=== PATIENT | female | born 1940 | race Caucasian/White ===

== ENCOUNTER 2017-01-26 06:44 | Day surgery (SDC) | payer MEDICARE, OTHER ==
[~2017-01-26 06:44] MED LIST: ACETAMINOPHEN 1000MG/100 ML PREMIX IV ONE; CEFAZOLIN 2 Gram 50 ML IVPB ONE
[2017-01-26] MEDS ORDERED: MIDAZOLAM HCL 2MG/2ML VIAL IV ONE (14:00)
[2017-01-26] MEDS ORDERED: PROPOFOL 10 MG/ML VIAL IV ONE (14:00)
[2017-01-26] MEDS ORDERED: *PACU ONLY* KETAMINE HCL 10 MG/ML (20ML) VIAL IV ONE (14:00)
--- NOTE | 2017-01-27 12:36 | Operative Note ---
DATE OF SURGERY: 01/26/2017 PREOPERATIVE DIAGNOSIS: Vulvar lesions. POSTOPERATIVE DIAGNOSIS: Vulvar lesions. OPERATION: Pap smear under anesthesia. PUNCH BIOPSIES of the right and left labia. Physician: Chio Shetty DO Anesthesia: MAC with local. COMPLICATIONS: None. Estimated Blood Loss: Minimal. HISTORY OF PRESENT ILLNESS: This is a 76-year-old white female. She has had vulvar abnormalities for a number of years. A couple of years ago we did do a biopsy and it came back lichen sclerosis. The area has not healed and has appeared worse over time. Because of that, I wanted to do some biopsies. She could not tolerate it in the office so we opted to do it under local anesthesia. She has not had a Pap smear as well for a long time either, so we have to do a Pap smear. PROCEDURE: The patient is prepped for surgery and brought back to the Operative Suite. She was made groggy. She was sterilely prepped and draped in dorsal lithotomy position. Speculum was placed. A Pap smear was done without difficulty. Area that was very thick whitish plaque and ulcerated on the left side was anesthetized. A 6 mm punch biopsy was used to sample that area. The area on the right side appeared to have similar aspects. That area was numbed up and a punch biopsy was done with a 6 mm punch. The area was oozing. Silver nitrate was placed. A stitch using a [id number] 2-0 Vicryl was then used. The area was cleaned and dried. The patient was then brought to the recovery room in satisfactory condition. Chio Shetty DO [facility]
== END 2017-01-26 09:10 | disposition home or self-care (01) ==
LOC: SUR 06:44
PROVIDERS: ATTEND Obstetrics & Gynecology
DX: L90.0 Lichen sclerosus et atrophicus (principal); N90.4 Leukoplakia of vulva; J44.9 Chronic obstructive pulmonary disease, unspecified; I10 Essential (primary) hypertension; E03.9 Hypothyroidism, unspecified; E78.00 Pure hypercholesterolemia, unspecified
CPT/HCPCS: 56605; 56606; 00940; 88305; 93005; 93010; J0690

== ENCOUNTER 2017-08-08 07:10 | Emergency (ER) | payer MEDICARE, OTHER ==
--- NOTE | 2017-08-08 07:34 | Emergency Department Record ---
History of Present Illness - General Chief complaint: Extremity Problem Stated complaint: gout left foot Time Seen by Provider: 08/08/17 07:14 Source: Patient, RN notes reviewed - History of Present Illness Initial comments: pain in the first MP joint of the foot. swollen and no heat and she has had gout before. Onset/Timin -: Days(s) - Related Data Home Medications Medication Instructions Recorded Confirmed Last Taken Atorvastatin Calcium 40 mg PO DAILY 08/08/17 08/08/17 1 Day Ago ~08/07/17 Cholecalciferol (Vitamin D3) 2,000 unit PO DAILY 08/08/17 08/08/17 1 Day Ago [Vitamin D3] ~08/07/17 Ferrous Sulfate 325 mg PO DAILY 08/08/17 08/08/17 1 Day Ago ~08/07/17 Hydrocodone/Acetaminophen [[place] 1 tab PO Q6H PRN 08/08/17 08/08/17 1 Day Ago 5mg/325mg] ~08/07/17 Levothyroxine Sodium [Synthroid] 175 mcg PO DAILY 08/08/17 08/08/17 1 Day Ago ~08/07/17 Previous Rx's Medication Instructions Recorded Miconazole Nitrate [Monistat 7] 44 gm VG BID PRN #1 cmb.pf.crm 06/07/16 Allergies Allergy/AdvReac Type Severity Reaction Status Date / Time No Known Drug Allergies Allergy Verified 08/08/17 07:17 Travel Screening - Travel/Exposure Within Last 30 Days Have you traveled within the last 30 days?: No - Travel/Exposure Within Last Year Have you traveled outside the [place] in the last year?: No - Additonal Travel Details Have you been exposed to anyone with a communicable illness?: No - Travel Symptoms Symptom Screening: None Review of Systems Reviewed: No additional complaints except as noted below Constitutional: Reports: As per HPI. Denies: Chills, Fever, Malaise, Night sweats, Weakness, Weight change Eyes: Reports: As per HPI. Denies: Eye discharge, Eye pain, Photophobia, Vision change ENT: Reports: As per HPI. Denies: Congestion, Dental pain, Ear pain, Epistaxis , Hearing loss, Throat pain Respiratory: Reports: As per HPI. Denies: Cough, Dyspnea, Hemoptysis, Stridor, Wheezes Cardiovascular: Reports: As per HPI. Denies: Arrhythmia, Chest pain, Dyspnea on exertion, Edema, Murmurs, Orthopnea, Palpitations, Paroxysmal nocturnal dyspnea, Rheumatic Fever, Syncope Endocrine: Reports: As per HPI. Denies: Fatigue, Heat or cold intolerance, Polydipsia, Polyuria Gastrointestinal: Reports: As per HPI. Denies: Abdominal pain, Constipation, Diarrhea, Hematemesis, Hematochezia, Melena, Nausea, Vomiting Genitourinary: Reports: As per HPI. Denies: Abnormal menses, Discharge, Dyspareunia, Dysuria, Frequency, Hematuria, Incontinence, Retention, Urgency Musculoskeletal: Reports: As per HPI, Gout. Denies: Arthralgia, Back pain, Joint swelling, Myalgia, Neck pain Skin: Reports: As per HPI. Denies: Bruising, Change in color, Change in hair/ nails, Lesions, Pruritus, Rash Neurological: Reports: As per HPI. Denies: Abnormal gait, Confusion, Headache, Numbness, Paresthesias, Seizure, Tingling, Tremors, Vertigo, Weakness Psychiatric: Reports: As per HPI. Denies: Anxiety, Auditory hallucinations, Depression, Homicidal thoughts, Suicidal thoughts, Visual hallucinations Hematological/Lymphatic: Reports: As per HPI. 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)" - NEURO Hx Neuro Disorders: No - GI Hx GI Disorders: Yes Hx GI Bleed: Yes Hx Reflux: Yes Hx of Polyps: Yes - Hx Genitourinary Disorders: Yes Hx Kidney Stones: Yes Hx UTI: Yes - ENDOCRINE Hx Endocrine Disorders: Yes Hx Thyroid Disease: Yes (hypo) - MUSCULOSKELETAL Hx Musculoskeletal Disorders: Yes Hx Arthritis: Yes Hx Osteoporosis: Yes Comment:: spinal stenosis - PSYCH Hx Psych Problems: No - HEMATOLOGY/ONCOLOGY Hx Hematology/Oncology Disorders: Yes Hx Anemia: Yes Hx Blood Transfusions: Yes Hx Blood Transfusion Reaction: No Family Medical History Any Significant Family History?: Yes Hx Stroke: Father Physical Exam - General General Appearance: Alert, Oriented x3, Cooperative, No acute distress - Head Head exam: Normal inspection - Eye Eye exam: Normal appearance, PERRL Pupils: Normal accommodation - ENT ENT exam: Normal exam, Mucous membranes moist, Normal external ear exam, Normal orophraynx, TM's normal bilaterally Ear exam: Normal external inspection. negative: External canal tenderness Nasal Exam: Normal inspection. negative: Discharge, Sinus tenderness Mouth exam: Normal external inspection, Tongue normal Teeth exam: Normal inspection. negative: Dental caries Throat exam: Normal inspection. negative: Tonsillar erythema, Tonsillar exudate - Neck Neck exam: Normal inspection, Full ROM. negative: Tenderness - Respiratory Respiratory exam: Normal lung sounds bilaterally. negative: Respiratory distress - Cardiovascular Cardiovascular Exam: Regular rate, Normal rhythm, Normal heart sounds - GI/Abdominal GI/Abdominal exam: Soft, Normal bowel sounds - Rectal Rectal exam: Deferred - exam: Deferred - Extremities Extremities exam: Normal inspection, Full ROM, Normal capillary refill, Tenderness (first MP joint) - Back Back exam: Reports: Normal inspection, Full ROM. Denies: Muscle spasm, Rash noted, Tenderness - Neurological Neurological exam: Alert, Normal gait, Oriented X3, Reflexes normal - Psychiatric Psychiatric exam: Normal affect, Normal mood - Skin Skin exam: Dry, Intact, Normal color, Warm Course Vital Signs 08/08/17 07:12 Temperature 97.6 F Pulse Rate 62 Respiratory 18 Rate Blood Pressure 160/67 Pulse Ox 99 Medical Decision Making - Lab Data Result diagrams: 08/08/17 08:02 Disposition Clinical Impression: Acute gout Qualifiers: Gout site: foot Encounter type: initial encounter Laterality: left Disposition: Home, Self-Care Forms: Patient Portal Access Quality - Quality Measures Quality Measures: N/A - Blood Pressure Screening Does Patient Have Any of the Following: No Blood Pressure Classification: Hypertensive Reading Systolic Measurement: 160 Diastolic Measurement: 67 Screening for High Blood Pressure: Patient Exclusion, Hx of HTN [G9744]
[2017-08-08] MEDS: INDOMETHACIN 25 MG CAPSULE PO ONE (07:41)
[2017-08-08 08:15] LABS: BASO % 0.1 % (0-6); EOS % 0.6 % (0-6); GRAN % 78.8 % (47-80); HEMATOCRIT 43.7 % (35.0-47.0); HEMOGLOBIN 14.2 gm/dl (11.6-16.0); LYMPH % 10.9 % (16-45); MEAN CELL VOLUME 92.4 fl (81-97); MEAN CORPUSCULAR HGB CONC 32.5 g/dl (32-36); MEAN PLATELET VOLUME 9.3 fl (7.4-10.4); MONO % 9.6 % (0-9); PLATELET COUNT 284 K/uL (130-400); RED BLOOD COUNT 4.73 M/uL (3.80-5.40); RED CELL DISTRIBUTION WIDTH 13.3 % (11.5-14.5); WHITE BLOOD COUNT W/O DIFF 9.1 K/uL (4.2-12.2)
--- NOTE | 2017-08-08 08:36 | Emergency Department Record ---
History of Present Illness - General Chief complaint: Extremity Problem Stated complaint: gout left foot Time Seen by Provider: 08/08/17 07:14 Source: Patient, RN notes reviewed - History of Present Illness Onset/Timin -: Days(s) - Related Data Home Medications Medication Instructions Recorded Confirmed Last Taken Atorvastatin Calcium 40 mg PO DAILY 08/08/17 08/08/17 1 Day Ago ~08/07/17 Cholecalciferol (Vitamin D3) 2,000 unit PO DAILY 08/08/17 08/08/17 1 Day Ago [Vitamin D3] ~08/07/17 Ferrous Sulfate 325 mg PO DAILY 08/08/17 08/08/17 1 Day Ago ~08/07/17 Hydrocodone/Acetaminophen [[place] 1 tab PO Q6H PRN 08/08/17 08/08/17 1 Day Ago 5mg/325mg] ~08/07/17 Levothyroxine Sodium [Synthroid] 175 mcg PO DAILY 08/08/17 08/08/17 1 Day Ago ~08/07/17 Previous Rx's Medication Instructions Recorded Miconazole Nitrate [Monistat 7] 44 gm VG BID PRN #1 cmb.pf.crm 06/07/16 Indomethacin [Indocin] 25 mg PO TID #20 capsule 08/08/17 Allergies Allergy/AdvReac Type Severity Reaction Status Date / Time No Known Drug Allergies Allergy Verified 08/08/17 07:17 Travel Screening - Travel/Exposure Within Last 30 Days Have you traveled within the last 30 days?: No - Travel/Exposure Within Last Year Have you traveled outside the [place] in the last year?: No - Additonal Travel Details Have you been exposed to anyone with a communicable illness?: No - Travel Symptoms Symptom Screening: None Review of Systems Constitutional: Reports: As per HPI. Denies: Chills, Fever, Malaise, Night sweats, Weakness, Weight change Eyes: Reports: As per HPI. Denies: Eye discharge, Eye pain, Photophobia, Vision change ENT: Reports: As per HPI. Denies: Congestion, Dental pain, Ear pain, Epistaxis , Hearing loss, Throat pain Respiratory: Reports: As per HPI. Denies: Cough, Dyspnea, Hemoptysis, Stridor, Wheezes Cardiovascular: Reports: As per HPI. Denies: Arrhythmia, Chest pain, Dyspnea on exertion, Edema, Murmurs, Orthopnea, Palpitations, Paroxysmal nocturnal dyspnea, Rheumatic Fever, Syncope Endocrine: Reports: As per HPI. Denies: Fatigue, Heat or cold intolerance, Polydipsia, Polyuria Gastrointestinal: Reports: As per HPI. Denies: Abdominal pain, Constipation, Diarrhea, Hematemesis, Hematochezia, Melena, Nausea, Vomiting Genitourinary: Reports: As per HPI. Denies: Abnormal menses, Discharge, Dyspareunia, Dysuria, Frequency, Hematuria, Incontinence, Retention, Urgency Musculoskeletal: Reports: As per HPI, Gout. Denies: Arthralgia, Back pain, Joint swelling, Myalgia, Neck pain Skin: Reports: As per HPI. Denies: Bruising, Change in color, Change in hair/ nails, Lesions, Pruritus, Rash Neurological: Reports: As per HPI. Denies: Abnormal gait, Confusion, Headache, Numbness, Paresthesias, Seizure, Tingling, Tremors, Vertigo, Weakness Psychiatric: Reports: As per HPI. Denies: Anxiety, Auditory hallucinations, Depression, Homicidal thoughts, Suicidal thoughts, Visual hallucinations Hematological/Lymphatic: Reports: As per HPI. 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)" - NEURO Hx Neuro Disorders: No - GI Hx GI Disorders: Yes Hx GI Bleed: Yes Hx Reflux: Yes Hx of Polyps: Yes - Hx Genitourinary Disorders: Yes Hx Kidney Stones: Yes Hx UTI: Yes - ENDOCRINE Hx Endocrine Disorders: Yes Hx Thyroid Disease: Yes (hypo) - MUSCULOSKELETAL Hx Musculoskeletal Disorders: Yes Hx Arthritis: Yes Hx Osteoporosis: Yes Comment:: spinal stenosis - PSYCH Hx Psych Problems: No - HEMATOLOGY/ONCOLOGY Hx Hematology/Oncology Disorders: Yes Hx Anemia: Yes Hx Blood Transfusions: Yes Hx Blood Transfusion Reaction: No Family Medical History Any Significant Family History?: Yes Hx Stroke: Father Course Vital Signs 08/08/17 07:12 Temperature 97.6 F Pulse Rate 62 Respiratory 18 Rate Blood Pressure 160/67 Pulse Ox 99 Medical Decision Making - Lab Data Result diagrams: 08/08/17 08:02 Lab Results 08/08/17 08/08/17 Range/Units 08:02 08:02 WBC 9.1 (4.2-12.2) K/uL RBC 4.73 (3.80-5.40) M/uL Hgb 14.2 (11.6-16.0) gm/dl Hct 43.7 (35.0-47.0) % MCV 92.4 (81-97) fl MCH 30.0 (27-33) pg MCHC 32.5 (32-36) g/dl RDW 13.3 (11.5-14.5) % Plt Count 284 (130-400) K/uL MPV 9.3 (7.4-10.4) fl Gran % 78.8 (47-80) % Lymphocytes % 10.9 L (16-45) % Monocytes % 9.6 H (0-9) % Eosinophils % 0.6 (0-6) % Basophils % 0.1 (0-6) % Uric Acid 8.40 H (2.4-5.7) mg/dL Disposition Clinical Impression: Acute gout Qualifiers: Gout site: foot Encounter type: initial encounter Laterality: left Disposition: Home, Self-Care Condition: (1) Good Instructions: Gout (ED) Additional Instructions: follow up with Dr. Lee in 4 days heat to foot three times a day Prescriptions: Indomethacin [Indocin] 25 mg PO TID #20 capsule Forms: Patient Portal Access Time of Disposition: 08:35 Quality - Quality Measures Quality Measures: N/A - Blood Pressure Screening Does Patient Have Any of the Following: No Blood Pressure Classification: Hypertensive Reading Systolic Measurement: 160 Diastolic Measurement: 67 Screening for High Blood Pressure: Patient Exclusion, Hx of HTN [G9744]
== END 2017-08-08 08:48 | disposition home or self-care (01) ==
LOC: ER 07:10
DX: M10.072 Idiopathic gout, left ankle and foot (principal)
CPT/HCPCS: 84550; 85025; 99283

== ENCOUNTER 2018-06-06 12:15 | Emergency (ER) | payer MEDICARE, OTHER ==
--- NOTE | 2018-06-06 12:27 | Emergency Department Record ---
History of Present Illness - General Chief complaint: Pain Stated complaint: GOUT Time Seen by Provider: 06/06/18 12:19 - Related Data Home Medications Medication Instructions Recorded Confirmed Last Taken Allopurinol 300 mg PO DAILY 06/06/18 06/06/18 06/06/18 Previous Rx's Medication Instructions Recorded Indomethacin [Indocin] 25 mg PO TID #30 capsule 06/06/18 Allergies Allergy/AdvReac Type Severity Reaction Status Date / Time No Known Drug Allergies Allergy Verified 06/06/18 12:23 Past Medical History - SOCIAL HISTORY Smoking Status: Former smoker Drug Use: None - RESPIRATORY Hx Respiratory Disorders: Yes Hx COPD: Yes Hx Dyspnea: Yes (r/t COPD) Hx Sleep Apnea: Yes Hx of CPAP: Yes - CARDIOVASCULAR Hx Cardio Disorders: Yes Hx Cardiac Cath: Yes Hx Deep Vein Thrombosis: Yes Hx Hypertension: Yes Hx Vascular Disease: Yes Comment:: hx of "plugged carotids (bilat)" - NEURO Hx Neuro Disorders: No - GI Hx GI Disorders: Yes Hx GI Bleed: Yes Hx Reflux: Yes Hx of Polyps: Yes - Hx Genitourinary Disorders: Yes Hx Kidney Stones: Yes Hx UTI: Yes - ENDOCRINE Hx Endocrine Disorders: Yes Hx Thyroid Disease: Yes (hypo) - MUSCULOSKELETAL Hx Musculoskeletal Disorders: Yes Hx Arthritis: Yes Hx Osteoporosis: Yes Comment:: spinal stenosis - PSYCH Hx Psych Problems: No - HEMATOLOGY/ONCOLOGY Hx Hematology/Oncology Disorders: Yes Hx Anemia: Yes Hx Blood Transfusions: Yes Hx Blood Transfusion Reaction: No Family Medical History Hx Stroke: Father Medical Decision Making - Data Complexity MDM Data: Labs Ordered and/or Reviewed (uric acid 5.5) - Lab Data Result diagrams: 06/06/18 12:51 Disposition Clinical Impression: Gout attack Qualifiers: Gout site: foot Gout etiology: idiopathic Laterality: left Qualified Code(s): M10.072 - Idiopathic gout, left ankle and foot Disposition: Home, Self-Care Condition: (1) Good Instructions: Low Purine Diet (ED) Additional Instructions: follow up with Dr. Lee Prescriptions: Indomethacin [Indocin] 25 mg PO TID #30 capsule Forms: Patient Portal Access Time of Disposition: 13:30 Quality - Quality Measures Quality Measures: N/A - Blood Pressure Screening Does Patient Have Any of the Following: No, Active Dx of HTN Blood Pressure Classification: Hypertensive Reading Systolic Measurement: 164 Diastolic Measurement: 78 Screening for High Blood Pressure: Patient Exclusion, Hx of HTN [[id number]]
[2018-06-06] MEDS ORDERED: INDOMETHACIN 25 MG CAPSULE PO ONE (12:45)
--- NOTE | 2018-06-06 12:47 | Emergency Department Record ---
History of Present Illness - General Chief complaint: Pain Stated complaint: GOUT Time Seen by Provider: 06/06/18 12:19 Source: Patient, RN notes reviewed Mode of Arrival: Wheelchair - History of Present Illness Initial comments: patient has a history of gout and she states it is acting up.No injuries no cuts on feet and the pain is the way her gout attacks feel like. Onset/Timin -: Days(s) Location: Left, Foot History of Same: Yes Severity scale (1-10): 6 Quality: Sharp Consistency: Intermittent Improves with: Nothing Worsens with: Nothing Associated Symptoms: Denies other symptoms - Related Data Home Medications Medication Instructions Recorded Confirmed Last Taken Allopurinol 300 mg PO DAILY 06/06/18 06/06/18 06/06/18 Previous Rx's Medication Instructions Recorded Indomethacin [Indocin] 25 mg PO TID #30 capsule 06/06/18 Allergies Allergy/AdvReac Type Severity Reaction Status Date / Time No Known Drug Allergies Allergy Verified 06/06/18 12:23 Travel Screening - Travel/Exposure Within Last 30 Days Have you traveled within the last 30 days?: No - Travel/Exposure Within Last Year Have you traveled outside the [place] in the last year?: No - Additonal Travel Details Have you been exposed to anyone with a communicable illness?: No - Travel Symptoms Symptom Screening: None Review of Systems Reviewed: No additional complaints except as noted below Constitutional: Reports: As per HPI. Denies: Chills, Fever, Malaise, Night sweats, Weakness, Weight change Eyes: Reports: As per HPI. Denies: Eye discharge, Eye pain, Photophobia, Vision change ENT: Reports: As per HPI. Denies: Congestion, Dental pain, Ear pain, Epistaxis , Hearing loss, Throat pain Respiratory: Reports: As per HPI. Denies: Cough, Dyspnea, Hemoptysis, Stridor, Wheezes Cardiovascular: Reports: As per HPI. Denies: Arrhythmia, Chest pain, Dyspnea on exertion, Edema, Murmurs, Orthopnea, Palpitations, Paroxysmal nocturnal dyspnea, Rheumatic Fever, Syncope Endocrine: Reports: As per HPI. Denies: Fatigue, Heat or cold intolerance, Polydipsia, Polyuria Gastrointestinal: Reports: As per HPI. Denies: Abdominal pain, Constipation, Diarrhea, Hematemesis, Hematochezia, Melena, Nausea, Vomiting Genitourinary: Reports: As per HPI. Denies: Abnormal menses, Discharge, Dyspareunia, Dysuria, Frequency, Hematuria, Incontinence, Retention, Urgency Musculoskeletal: Reports: As per HPI, Arthralgia. Denies: Back pain, Gout, Joint swelling, Myalgia, Neck pain Skin: Reports: As per HPI. Denies: Bruising, Change in color, Change in hair/ nails, Lesions, Pruritus, Rash Neurological: Reports: As per HPI. Denies: Abnormal gait, Confusion, Headache, Numbness, Paresthesias, Seizure, Tingling, Tremors, Vertigo, Weakness Psychiatric: Reports: As per HPI. Denies: Anxiety, Auditory hallucinations, Depression, Homicidal thoughts, Suicidal thoughts, Visual hallucinations Hematological/Lymphatic: Reports: As per HPI. Denies: Anemia, Blood Clots, Easy bleeding, Easy bruising, Swollen glands Past Medical History - SOCIAL HISTORY Smoking Status: Former smoker Drug Use: None - RESPIRATORY Hx Respiratory Disorders: Yes Hx COPD: Yes Hx Dyspnea: Yes (r/t COPD) Hx Sleep Apnea: Yes Hx of CPAP: Yes - CARDIOVASCULAR Hx Cardio Disorders: Yes Hx Cardiac Cath: Yes Hx Deep Vein Thrombosis: Yes Hx Hypertension: Yes Hx Vascular Disease: Yes Comment:: hx of "plugged carotids (bilat)" - NEURO Hx Neuro Disorders: No - GI Hx GI Disorders: Yes Hx GI Bleed: Yes Hx Reflux: Yes Hx of Polyps: Yes - Hx Genitourinary Disorders: Yes Hx Kidney Stones: Yes Hx UTI: Yes - ENDOCRINE Hx Endocrine Disorders: Yes Hx Thyroid Disease: Yes (hypo) - MUSCULOSKELETAL Hx Musculoskeletal Disorders: Yes Hx Arthritis: Yes Hx Osteoporosis: Yes Comment:: spinal stenosis - PSYCH Hx Psych Problems: No - HEMATOLOGY/ONCOLOGY Hx Hematology/Oncology Disorders: Yes Hx Anemia: Yes Hx Blood Transfusions: Yes Hx Blood Transfusion Reaction: No Family Medical History Hx Stroke: Father Physical Exam - General General Appearance: Alert, Oriented x3, Cooperative, No acute distress - Head Head exam: Normal inspection - Eye Eye exam: Normal appearance, PERRL Pupils: Normal accommodation - ENT ENT exam: Normal exam, Mucous membranes moist, Normal external ear exam, Normal orophraynx, TM's normal bilaterally Ear exam: Normal external inspection. negative: External canal tenderness Nasal Exam: Normal inspection. negative: Discharge, Sinus tenderness Mouth exam: Normal external inspection, Tongue normal Teeth exam: Normal inspection. negative: Dental caries Throat exam: Normal inspection. negative: Tonsillar erythema, Tonsillar exudate - Neck Neck exam: Normal inspection, Full ROM. negative: Tenderness - Respiratory Respiratory exam: Normal lung sounds bilaterally. negative: Respiratory distress - Cardiovascular Cardiovascular Exam: Regular rate, Normal rhythm, Normal heart sounds - GI/Abdominal GI/Abdominal exam: Soft, Normal bowel sounds. negative: Tenderness - Rectal Rectal exam: Deferred - exam: Deferred - Extremities Extremities exam: Normal inspection, Full ROM, Normal capillary refill, Tenderness (left great toe first MP joint pain, redness of the foot present ) - Back Back exam: Reports: Normal inspection, Full ROM. Denies: Muscle spasm, Rash noted, Tenderness - Neurological Neurological exam: Alert, Normal gait, Oriented X3, Reflexes normal - Psychiatric Psychiatric exam: Normal affect, Normal mood - Skin Skin exam: Dry, Intact, Normal color, Warm Course Vital Signs 06/06/18 12:28 Temperature 98 F Pulse Rate 63 Respiratory 20 Rate Blood Pressure 164/78 Pulse Ox 98 Medical Decision Making - Data Complexity MDM Data: Labs Ordered and/or Reviewed Disposition Clinical Impression: Gout attack Qualifiers: Gout site: foot Gout etiology: idiopathic Laterality: left Qualified Code(s): M10.072 - Idiopathic gout, left ankle and foot Disposition: Home, Self-Care Condition: (1) Good Instructions: Low Purine Diet (ED) Additional Instructions: follow up with Dr. Lee Prescriptions: Indomethacin [Indocin] 25 mg PO TID #30 capsule Forms: Patient Portal Access Time of Disposition: 12:50 Quality - Quality Measures Quality Measures: N/A - Blood Pressure Screening Does Patient Have Any of the Following: No, Active Dx of HTN Blood Pressure Classification: Hypertensive Reading Systolic Measurement: 164 Diastolic Measurement: 78 Screening for High Blood Pressure: Patient Exclusion, Hx of HTN [G9744]
[2018-06-06 13:09] LABS: BASO % 0.3 % (0-6); EOS % 5.9 % (0-6); GRAN % 77.3 % (47-80); HEMATOCRIT 39.2 % (35.0-47.0); HEMOGLOBIN 12.1 gm/dl (11.6-16.0); LYMPH % 7.8 % (16-45); MEAN CELL VOLUME 96.1 fl (81-97); MEAN CORPUSCULAR HEMOGLOBIN 29.7 pg (27-33); MEAN CORPUSCULAR HGB CONC 30.9 g/dl (32-36); MEAN PLATELET VOLUME 9.9 fl (7.4-10.4); MONO % 8.7 % (0-9); PLATELET COUNT 270 K/uL (130-400); RED BLOOD COUNT 4.08 M/uL (3.80-5.40); RED CELL DISTRIBUTION WIDTH 14.7 % (11.5-14.5); WHITE BLOOD COUNT W/O DIFF 6.8 K/uL (4.2-12.2)
== END 2018-06-06 13:44 | disposition home or self-care (01) ==
LOC: ER 12:15
DX: M10.072 Idiopathic gout, left ankle and foot (principal); I10 Essential (primary) hypertension; J44.9 Chronic obstructive pulmonary disease, unspecified; Z87.891 Personal history of nicotine dependence
CPT/HCPCS: 84550; 85025; 99283